=== PATIENT | female | born 1995 | race Caucasian/White ===

== ENCOUNTER 2016-06-02 12:32 | Emergency (ER) | payer MEDICAID ==
[~2016-06-02] VITALS: Ht 165.1 cm; Wt 104.0 kg
[~2016-06-02 12:32] MED LIST: METR-1 PO
[2016-06-02 12:48] VITALS: BP 146/103; PULSE 126; RESP 16; TEMP 99.4; O2SAT 99
--- NOTE | 2016-06-02 13:35 | PD ---
HPI Chief Complaint: Cold / Flu Symptoms Time Seen by Provider: 12:56 Travel History International Travel<30 days: No Contact w/Intl Traveler<30days: No Traveled to known affect area: No History of Present Illness HPI History and examined on the presence of the patient's father. She is 11 weeks . She complains of some runny nose and congestion and headache and diffuse achiness. She has some nausea as well but no vomiting or pelvic pain or bleeding. Symptoms severity is mild. PFSH Past Medical History Hx Anticoagulant Therapy: No Anxiety: Yes Diabetes: No Diminished Hearing: No Immunizations Current: Yes Tetanus Vaccination: < 5 Years Influenza Vaccination: No ?: LMP: 03/19/16 : 1 Para: 0 Past Surgical History Thoracic Surgery: Yes Other Surgery: Yes (REMOVED INFECTION FROM HIP AT 3 YEARS OF AGE) Social History Alcohol Use: No Tobacco Use: No (QUIT 11/2015) Substance Use: No Allergies-Medications (Allergen,Severity, Reaction): Coded Allergies: Zyrtec (Verified Adverse Reaction, Intermediate, VOMITS, 06/02/16) Reported Meds & Prescriptions Reported Meds & Active Scripts Active No Active Prescriptions or Reported Medications Review of Systems General / Constitutional: No: Fever HENT: Positive: Headaches Cardiovascular: No: Chest Pain or Discomfort Respiratory: No: Shortness of Breath Physical Exam Narrative RESPIRATORY: Respiratory effort unlabored, no retractions or use of accessory muscles. Breath sounds are clear and symmetric. CARDIOVASCULAR: Regular rate and rhythm without murmur. Extremities showed no edema or varicosities. GASTROINTESTINAL: Abdomen soft, non-tender, nondistended. Positive bowel sounds. No hepato-splenomegaly, or palpable masses. No guarding. Throat clear Data Data Last Documented VS Vital Signs Date Time Temp Pulse Resp B/P Pulse Ox O2 Delivery O2 Flow Rate FiO2 06/02/16 13:02 16 99 Room Air 06/02/16 12:48 99.4 126 146/103 MDM Medical Decision Making Medical Screen Exam Complete: Yes Emergency Medical Condition: Yes Medical Record Reviewed: Yes Differential Diagnosis Flu syndrome, bronchitis, hyperemesis Narrative Course I have reviewed the patient's electronic medical record. Presentation seems most consistent with an acute viral illness in a young healthy person. No indication for antibiotics Supportive care is discussed Diagnosis Primary Impression: Flu syndrome Additional Impressions: Nausea Qualified Code: Z3A.11 - 11 weeks gestation of Referrals: Primary Care Physician call for appointment Patient Instructions: General Instructions Departure Forms: Work Release, Enter return to work date: Jun 03, 2016 Tests/Procedures Additional Instructions: The patient was advised to follow up with their physician and return if they worsen. Med/Other Pt SpecificInfo: Other Scripts No Active Prescriptions or Reported Meds Disposition: 01 DISCHARGE HOME Condition: Stable Fito Li MD Jun 02, 2016 13:34
== END 2016-06-02 13:53 | disposition home or self-care (01) ==
LOC: PHED 12:32
DX: O26.91 Pregnancy related conditions, unspecified, first trimester (principal); J11.1 Influenza due to unidentified influenza virus with other respiratory manifestations; R11.0 Nausea; R51 Headache; Z3A.11 11 weeks gestation of pregnancy
CPT/HCPCS: 99283

== ENCOUNTER → 2016-09-13 | Outpatient (CLI) | payer MEDICAID | LOC: HPND 07:59 | PROVIDERS: ATTEND Obstetrics & Gynecology | DX: O99.212 Obesity complicating pregnancy, second trimester (principal) | CPT/HCPCS: 76811 ==

== ENCOUNTER → 2016-10-12 | Outpatient (CLI) | payer MEDICAID | LOC: HPND 07:58 | PROVIDERS: ATTEND Obstetrics & Gynecology | DX: O99.213 Obesity complicating pregnancy, third trimester (principal); E66.09 Other obesity due to excess calories; Z68.37 Body mass index [BMI] 37.0-37.9, adult; Z3A.29 29 weeks gestation of pregnancy | CPT/HCPCS: 76816 ==

== ENCOUNTER 2017-06-03 17:25 | Observation (INO) | payer MEDICAID ==
[~2017-06-03] VITALS: Ht 165.1 cm; Wt 110.7 kg
[2017-06-03] VITALS (7 sets, daily range): BP systolic 101–145; BP diastolic 59–78; PULSE 98–144; RESP 16–20; TEMP 96–100; O2SAT 96–98
[2017-06-03] MEDS ORDERED: SODIUM CHLOR 0.9% 1000 ML INJ 800 ML IV ONE (17:46)
[2017-06-03] MEDS ORDERED: SODIUM CHLOR 0.9% 1000 ML INJ 1,000 ML IV ONE ×2 (17:46→18:45)
--- NOTE | 2017-06-03 17:50 | PD ---
HPI Chief Complaint: GI Complaint Time Seen by Provider: 17:43 Travel History International Travel<30 days: No Contact w/Intl Traveler<30days: No Traveled to known affect area: No History of Present Illness HPI 21-year-old female here for evaluation of fever, generalized malaise, dizziness , lightheadedness, nausea, vomiting, diarrhea, and cough. Symptoms have been going on for 3 days. Her 6-month-old son as well as her significant other had similar symptoms last week and her son tested positive for flu. Symptoms progressively worsened today. She did notice a small amount of blood in a couple episodes of emesis. Cough is productive of greenish sputum. No hemoptysis. She denies chest pain or dyspnea. No abdominal pain. She has not taken anything for her symptoms. No history of IVDU. PFSH Past Medical History Hx Anticoagulant Therapy: No Anxiety: Yes Diabetes: No Diminished Hearing: No Immunizations Current: Yes ?: Not LMP: POST : 1 Para: 0 Past Surgical History Thoracic Surgery: Yes Other Surgery: Yes (REMOVED INFECTION FROM HIP AT 3 YEARS OF AGE) Social History Alcohol Use: No Tobacco Use: No (QUIT 11/2015) Substance Use: No Allergies-Medications (Allergen,Severity, Reaction): Coded Allergies: cetirizine (Unverified Adverse Reaction, Intermediate, VOMITS, 06/03/17) Reported Meds & Prescriptions Reported Meds & Active Scripts Active Reported [birthcontrol] Review of Systems Except as stated in HPI: all other systems reviewed are Neg Physical Exam Narrative GENERAL: Well-developed, well-nourished, awake, alert. SKIN: Focused skin assessment warm/diaphoretic. No rashes. HEAD: Atraumatic. Normocephalic. EYES: Pupils equal and round. No scleral icterus. No injection or drainage. ENT: No nasal bleeding or discharge. Mucous membranes pink and moist. Pharynx with mild erythema without exudates. Uvula midline. Normal phonation. NECK: Trachea midline. No JVD. No nuchal rigidity. CARDIOVASCULAR: Tachycardic, rate 136, regular. RESPIRATORY: No accessory muscle use. Clear to auscultation. Breath sounds equal bilaterally. GASTROINTESTINAL: Abdomen soft, non-tender, nondistended. MUSCULOSKELETAL: No obvious deformities. No clubbing. No cyanosis. No edema. NEUROLOGICAL: Awake and alert. No obvious cranial nerve deficits. Motor grossly within normal limits. Normal speech. PSYCHIATRIC: Appropriate mood and affect; insight and judgment normal. Data Data Last Documented VS Vital Signs Date Time Temp Pulse Resp B/P (MAP) Pulse Ox O2 Delivery O2 Flow Rate FiO2 06/03/17 19:05 99.3 129 18 133/78 (96) 97 Room Air Orders Orders Sepsis Workup Initiated (06/03/17 ) Complete Blood Count With Diff (06/03/17 17:46) Comprehensive Metabolic Panel (06/03/17 17:46) Lactic Acid Sepsis Protocol (06/03/17 17:46) Urinalysis - C+S If Indicated (06/03/17 17:46) Influenzae A/B Antigen (06/03/17 17:46) Blood Culture (06/03/17 17:46) Chest, Single Ap (06/03/17 17:46) Blood Glucose (06/03/17 17:46) Ecg Monitoring (06/03/17 17:46) Iv Access Insert/Monitor (06/03/17 17:46) Oximetry (06/03/17 17:46) Oxygen Administration (06/03/17 17:46) Acetaminophen (Tylenol) (06/03/17 18:00) Sodium Chlor 0.9% 1000 Ml Inj (Ns 1000 M (06/03/17 17:46) Sodium Chlor 0.9% 1000 Ml Inj (Ns 1000 M (06/03/17 17:46) Ondansetron Inj (Zofran Inj) (06/03/17 18:00) Ed Urine Pregnancytest Poc (06/03/17 18:14) Oseltamivir (Tamiflu) (06/03/17 18:45) Sodium Chlor 0.9% 1000 Ml Inj (Ns 1000 M (06/03/17 18:45) Ketorolac Inj (Toradol Inj) (06/03/17 18:45) Oseltamivir (Tamiflu) (06/03/17 19:30) Labs Laboratory Tests Test 06/03/17 17:50 06/03/17 19:00 White Blood Count 6.2 TH/MM3 Red Blood Count 4.79 MIL/MM3 Hemoglobin 13.0 GM/DL Hematocrit 40.5 % Mean Corpuscular Volume 84.4 FL Mean Corpuscular Hemoglobin 27.1 PG Mean Corpuscular Hemoglobin Concent 32.1 % Red Cell Distribution Width 12.8 % Platelet Count 225 TH/MM3 Mean Platelet Volume 8.0 FL Neutrophils (%) (Auto) 75.4 % Lymphocytes (%) (Auto) 11.4 % Monocytes (%) (Auto) 12.7 % Eosinophils (%) (Auto) 0.1 % Basophils (%) (Auto) 0.4 % Neutrophils # (Auto) 4.7 TH/MM3 Lymphocytes # (Auto) 0.7 TH/MM3 Monocytes # (Auto) 0.8 TH/MM3 Eosinophils # (Auto) 0.0 TH/MM3 Basophils # (Auto) 0.0 TH/MM3 CBC Comment DIFF FINAL Differential Comment Blood Urea Nitrogen 7 MG/DL Creatinine 0.85 MG/DL Random Glucose 108 MG/DL Total Protein 8.9 GM/DL Albumin 4.2 GM/DL Calcium Level 9.0 MG/DL Alkaline Phosphatase 93 U/L Aspartate Amino Transf (AST/SGOT) 21 U/L Alanine Aminotransferase (ALT/SGPT) 27 U/L Total Bilirubin 0.5 MG/DL Sodium Level 139 MEQ/L Potassium Level 3.5 MEQ/L Chloride Level 104 MEQ/L Carbon Dioxide Level 23.7 MEQ/L Anion Gap 11 MEQ/L Estimat Glomerular Filtration Rate 84 ML/MIN Lactic Acid Level 1.1 mmol/L Urine Color YELLOW Urine Turbidity CLEAR Urine pH 5.5 Urine Specific [place] 1.021 Urine Protein 30 mg/dL Urine Glucose (UA) NEG mg/dL Urine Ketones NEG mg/dL Urine Occult Blood MOD Urine Nitrite NEG Urine Bilirubin NEG Urine Leukocyte Esterase NEG Urine RBC 4-9 /hpf Urine Squamous Epithelial Cells 0-5 /hpf Urine Amorphous Sediment FEW Urine Mucus MANY /lpf Microscopic Urinalysis Comment CULT NOT INDICATED MDM Medical Decision Making Medical Screen Exam Complete: Yes Emergency Medical Condition: Yes Differential Diagnosis Sepsis, Influenza, viral illness, URI, pneumonia, UTI, dehydration, gastroenteritis, metabolic abnormality Narrative Course Initial vital signs show heart rate 144, blood pressure 145/77, pulse ox 96% on room air, oral temp of 100F. CBC: WBC 6.2, hemoglobin 13, hematocrit 40.5, platelets 225, neutrophils 75%, monocytes 12.7%. CMP is essentially unremarkable. Lactic acid is 1.1. UA is not suggestive of UTI. Influenza A is positive. Chest x-ray shows no evidence of acute cardiopulmonary disease. The patient was given 3 L of normal saline, Tylenol, and Toradol. She feels slightly improved, however her heart rate is still 110 beats per minutes. She was given a dose of Tamiflu as she has influenza A. Given persistent tachycardia, the patient will be admitted for overnight observation for further hydration therapy. Case discussed with hospitalist Dr. Nickerson who will admit the patient to the hospitalist service. Diagnosis Primary Impression: Influenza A Additional Impression: Sinus tachycardia Admitting Information Admitting Physician Requests: Observation Fitz Carmona MD Jun 03, 2017 17:50
[2017-06-03] MEDS ORDERED: birthcontrol (17:57)
[2017-06-03] MEDS ORDERED: ACETAMINOPHEN 325 MG TAB PO ONE (18:00)
[2017-06-03] MEDS ORDERED: ONDANSETRON HCL 4 MG/2 ML VIAL IV PUSH ONE (18:00)
--- NOTE | 2017-06-03 18:09 | RADRPT ---
EXAM DATE/TIME: 06/03/2017 17:57 [facility] COMPARISON: CHEST SINGLE AP, March 04, 2014, 9:58. INDICATIONS : Cough, short of breath, fever, chest pains MEDICAL HISTORY : None. SURGICAL HISTORY : None. ENCOUNTER: Initial ACUITY: 3 days PAIN SCORE: 9/10 LOCATION: Bilateral chest FINDINGS: A single view of the chest demonstrates the lungs to be symmetrically aerated without evidence of mas s, infiltrate or effusion. The cardiomediastinal contours are unremarkable. Osseous structures are intact. CONCLUSION: No evidence of acute cardiopulmonary disease. Ricco Farmer MD on June 03, 2017 at 18:06 Board Certified Radiologist. This report was verified electronically.
[2017-06-03 18:13] LABS: AUTOMATED NEUTROPHIL # 4.7 TH/MM3 (1.8-7.7); BASOPHIL % 0.4 % (0.0-2.0); EOSINOPHIL % 0.1 % (0.0-4.0); HEMATOCRIT 40.5 % (35.0-46.0); LYMPH % 11.4 % (9.0-44.0); LYMPHOCYTE # 0.7 TH/MM3 (1.0-4.8); MEAN CELL VOLUME 84.4 FL (80.0-100.0); MEAN CORPUSCULAR HEMOGLOBIN 27.1 PG (27.0-34.0); MEAN CORPUSCULAR HGB CONC 32.1 % (32.0-36.0); MONO % 12.7 % (0.0-8.0); MONOCYTE # 0.8 TH/MM3 (0-0.9); NEUT % 75.4 % (16.0-70.0); PLATELET COUNT 225 TH/MM3 (150-450); RED BLOOD COUNT 4.79 MIL/MM3 (4.00-5.30); RED CELL DISTRIBUTION WIDTH 12.8 % (11.6-17.2); WHITE BLOOD COUNT 6.2 TH/MM3 (4.0-11.0)
[2017-06-03 18:24] LABS: ALBUMIN 4.2 GM/DL (3.4-5.0); BICARBONATE 23.7 MEQ/L (21.0-32.0); BLOOD UREA NITROGEN 7 MG/DL (7-18); GLUCOSE,RANDOM 108 MG/DL (74-106)
[2017-06-03 18:27] LABS: ALT (GPT) 27 U/L (10-53); AST (GOT) 21 U/L (15-37); CREATININE 0.85 MG/DL (0.50-1.00); GLOMERULAR FILTRATION RATE 84 ML/MIN (>89)
[2017-06-03 18:29] LABS: TOTAL BILIRUBIN ADULT 0.5 MG/DL (0.2-1.0); TOTAL PROTEIN 8.9 GM/DL (6.4-8.2)
[2017-06-03 18:30] LABS: ALKALINE PHOSPHATASE 93 U/L (45-117)
[2017-06-03] MEDS ORDERED: KETOROLAC TROMETHAMINE 30 MG/ML (IVP) VIAL IV PUSH ONE (18:45)
[2017-06-03] MEDS ORDERED: OSELTAMIVIR PHOSPHATE 75 MG CAP PO ONE ×2 (18:45→19:30)
[2017-06-03 19:16] LABS: BILIRUBIN, URINE NEG (NEG); BLOOD, URINE MOD (NEG); GLUCOSE,URINE NEG (NEG); KETONE, URINE NEG (NEG); NITRITE,URINE NEG (NEG); PH, URINE 5.5 (5.0-8.5); URINE LEUKOCYTE ESTERASE NEG (NEG)
[2017-06-03 19:33] LABS: CHLORIDE 104 MEQ/L (98-107); SODIUM (NA) 139 MEQ/L (136-145)
[2017-06-03 19:33] LABS: URINE COLOR YELLOW (YELLW/STRAW)
[2017-06-03 19:34] LABS: MUCUS URINE MANY /lpf (OCC); SQUAMOUS EPITHELIAL CELL URINE 0-5 /hpf (0-5)
[2017-06-03 19:38] LABS: AMORPHOUS SEDIMENT, URINE FEW
[2017-06-03] MEDS ORDERED: LACTULOSE SYRUP 20 GM/30 ML CUP PO PRN (20:30)
[2017-06-03] MEDS ORDERED: ONDANSETRON HCL 4 MG/2 ML VIAL IVP PRN (20:30)
[2017-06-03] MEDS ORDERED: MAGNESIUM HYDROXIDE SUSP 30 ML CUP PO PRN (20:30)
[2017-06-03] MEDS ORDERED: ACETAMINOPHEN/HYDROcodone 325 MG/5 MG TAB PO PRN (20:30)
[2017-06-03] MEDS ORDERED: ACETAMINOPHEN/HYDROcodone 325 MG/10 MG TAB PO PRN (20:30)
[2017-06-03] MEDS ORDERED: SENNOSIDES 8.6 MG TAB PO PRN (20:30)
[2017-06-03] MEDS ORDERED: SODIUM CHLORIDE 0.9% FLUSH 10 ML FLUSH IV FLUSH PRN (20:30)
[2017-06-03] MEDS ORDERED: BISACODYL 10 MG SUPP RECTAL PRN (20:30)
[2017-06-03] MEDS: DOCUSATE SODIUM 50 MG/SENNA 8.6 MG TAB PO SCH (20:41)
[2017-06-03] MEDS: SODIUM CHLOR 0.9% 1000 ML INJ 1,000 ML IV SCH (20:41)
[2017-06-03] MEDS: SODIUM CHLORIDE 0.9% FLUSH 10 ML FLUSH IV FLUSH SCH (20:44)
[2017-06-04] VITALS (7 sets, daily range): BP systolic 117–142; BP diastolic 66–79; PULSE 90–124; RESP 20; TEMP 97.6–100.7; O2SAT 97–100
[2017-06-04] MEDS: ACETAMINOPHEN 325 MG TAB PO PRN ×2 (04:41→16:04)
[2017-06-04] MEDS: SODIUM CHLOR 0.9% 1000 ML INJ 1,000 ML IV SCH ×2 (05:37→14:51)
[2017-06-04 06:22] LABS: AUTOMATED NEUTROPHIL # 2.2 TH/MM3 (1.8-7.7); BASOPHIL % 0.5 % (0.0-2.0); EOSINOPHIL % 0.6 % (0.0-4.0); HEMATOCRIT 33.2 % (35.0-46.0); HEMOGLOBIN 10.9 GM/DL (11.6-15.3); LYMPH % 23.1 % (9.0-44.0); LYMPHOCYTE # 0.8 TH/MM3 (1.0-4.8); MEAN CELL VOLUME 85.2 FL (80.0-100.0); MEAN CORPUSCULAR HEMOGLOBIN 27.9 PG (27.0-34.0); MEAN CORPUSCULAR HGB CONC 32.7 % (32.0-36.0); MONO % 16.5 % (0.0-8.0); MONOCYTE # 0.6 TH/MM3 (0-0.9); NEUT % 59.3 % (16.0-70.0); PLATELET COUNT 165 TH/MM3 (150-450); RED BLOOD COUNT 3.89 MIL/MM3 (4.00-5.30); RED CELL DISTRIBUTION WIDTH 12.8 % (11.6-17.2); WHITE BLOOD COUNT 3.7 TH/MM3 (4.0-11.0)
[2017-06-04 06:32] LABS: CHLORIDE 110 MEQ/L (98-107); SODIUM (NA) 142 MEQ/L (136-145)
[2017-06-04 06:46] LABS: ALBUMIN 3.2 GM/DL (3.4-5.0); ALKALINE PHOSPHATASE 64 U/L (45-117); ALT (GPT) 27 U/L (10-53); AST (GOT) 22 U/L (15-37); BICARBONATE 23.7 MEQ/L (21.0-32.0); BLOOD UREA NITROGEN 7 MG/DL (7-18); CALCIUM 8.1 MG/DL (8.5-10.1); CREATININE 0.67 MG/DL (0.50-1.00); GLOMERULAR FILTRATION RATE 111 ML/MIN (>89); GLUCOSE,RANDOM 101 MG/DL (74-106); TOTAL BILIRUBIN ADULT 0.4 MG/DL (0.2-1.0); TOTAL PROTEIN 7.1 GM/DL (6.4-8.2)
[2017-06-04] MEDS: SODIUM CHLORIDE 0.9% FLUSH 10 ML FLUSH IV FLUSH SCH ×2 (09:00→21:00)
[2017-06-04] MEDS: DOCUSATE SODIUM 50 MG/SENNA 8.6 MG TAB PO SCH ×2 (09:00→21:02)
[2017-06-04] MEDS: OSELTAMIVIR PHOSPHATE 75 MG CAP PO SCH ×2 (09:13→21:02)
--- NOTE | 2017-06-04 13:03 | HHI.HP ---
[facility] Hola Rodriguez D.O. Admission Diagnosis influenza A, sinus tachycardia Diagnoses: Chief Complaint: flu Travel History International Travel<30 Days: No Contact w/Intl Traveler <30 Da: No Traveled to Known Affected Are: No History of Present Illness 21-year-old female with no past medical history who presented with flulike symptoms. Patient stated that since Sunday she developed emesis, severe muscle ache, and severe fatigue. She stated that she has the flu. Patient stated that her and 6 month old son had the flu last week and she has similar symptoms. She is also complaining about chest pain with deep inspiration. Deny any diarrhea. Patient stated that today she is able tolerate the diet but she is not eating much. She stated she mainly came here secondary to dehydration. Patient last fever was 100.6 at 4:00 AM. All other review system reviewed and negative. Past Family Social History Past Medical History Denies any past medical history. One vaginal delivery. Past Surgical History Deny any past surgical history. Reported Medications [birthcontrol] Allergies: Coded Allergies: cetirizine (Unverified Adverse Reaction, Intermediate, VOMITS, 06/03/17) Active Ordered Medications Current Medications Acetaminophen (Tylenol) 650 mg ONCE ONCE PO Last administered on 06/03/17at 18: 00; Start 06/03/17 at 18:00; Stop 06/03/17 at 18:01; Status DC Sodium Chloride 1,000 ml @ 1,000 mls/hr Q1H ONCE IV Last administered on at 18:00; Start 06/03/17 at 17:46; Stop 06/03/17 at 18:45; Status DC Sodium Chloride 800 ml @ 1,000 mls/hr Q48M ONCE IV Last administered on at 18:34; Start 06/03/17 at 17:46; Stop 06/03/17 at 18:33; Status DC Ondansetron HCl (Zofran Inj) 4 mg ONCE ONCE IV PUSH Last administered on at 18:00; Start 06/03/17 at 18:00; Stop 06/03/17 at 18:01; Status DC Oseltamivir Phosphate (Tamiflu) 75 mg ONCE ONCE PO ; Start 06/03/17 at 18:45; Stop 06/03/17 at 18:46; Status DC Sodium Chloride 1,000 ml @ 999 mls/hr BOLUS ONCE IV Last administered on 06/03at 19:07; Start 06/03/17 at 18:45; Stop 06/03/17 at 19:45; Status DC Ketorolac Tromethamine (Toradol Inj) 30 mg ONCE ONCE IV PUSH Last administered on 06/03/17at 19:08; Start 06/03/17 at 18:45; Stop 06/03/17 at 18:46 ; Status DC Oseltamivir Phosphate (Tamiflu) 75 mg ONCE ONCE PO Last administered on at 19:40; Start 06/03/17 at 19:30; Stop 06/03/17 at 19:31; Status DC Oseltamivir Phosphate (Tamiflu) 75 mg BID PO Last administered on 06/04/17at 09: 13; Start 06/04/17 at 09:00 Sodium Chloride 1,000 ml @ 100 mls/hr Q10H IV Last administered on 06/04/17at 05:37; Start 06/03/17 at 20:19 Sodium Chloride (NS Flush) 2 ml UNSCH PRN IV FLUSH FLUSH AFTER USING IV ACCESS ; Start 06/03/17 at 20:30 Sodium Chloride (NS Flush) 2 ml BID IV FLUSH ; Start 06/03/17 at 21:00 Ondansetron HCl (Zofran Inj) 4 mg Q6H PRN IVP NAUSEA OR VOMITING; Start at 20:30 Acetaminophen (Tylenol) 650 mg Q6H PRN PO FEVER/PAIN SCALE 1 TO 2 Last administered on 06/04/17at 04:41; Start 06/03/17 at 20:30 Acetaminophen/ Hydrocodone Bitart (Cucumber 5-325 Mg) 1 tab Q4H PRN PO PAIN SCALE 3 TO 5; Start 06/03/17 at 20:30 Acetaminophen/ Hydrocodone Bitart (Cucumber 10-325 Mg) 1 tab Q4H PRN PO PAIN SCALE 6 TO 10; Start 06/03/17 at 20:30 Senna/Docusate Sodium (Jen-Colace) 1 tab BID PO Last administered on at 20:41; Start 06/03/17 at 21:00 Magnesium Hydroxide (Milk Of Magnesia Liq) 30 ml Q12H PRN PO Mild constipation ; Start 06/03/17 at 20:30 Sennosides (Senokot) 17.2 mg Q12H PRN PO Moderate constipation; Start 06/03/17 at 20:30 Bisacodyl (Dulcolax Supp) 10 mg DAILY PRN RECTAL SEVERE CONSITIPATION; Start at 20:30 Lactulose (Lactulose Liq) 30 ml DAILY PRN PO SEVERE CONSITIPATION; Start at 20:30 Family History Review past family history noncontributory. Social History Denies any alcohol, tobacco or illicit drug use. Physical Exam Vital Signs Vital Signs Date Time Temp Pulse Resp B/P (MAP) Pulse Ox O2 Delivery O2 Flow Rate FiO2 06/04/17 07:50 99.5 109 20 119/68 (85) 97 06/04/17 05:39 99.1 06/04/17 04:00 100.6 120 20 142/79 (100) 99 06/04/17 00:00 97.6 124 20 117/72 (87) 100 06/03/17 21:45 96.0 98 20 101/59 (73) 98 06/03/17 21:38 98 06/03/17 21:25 06/03/17 21:15 106 18 06/03/17 19:05 99.3 129 18 133/78 (96) 97 Room Air 06/03/17 18:15 123 18 98 Room Air 06/03/17 17:49 97 Room Air 06/03/17 17:49 97 Room Air 06/03/17 17:30 100.0 144 16 145/77 (99) 96 Physical Exam GENERAL: This is a well-nourished, well-developed patient, in no apparent distress. SKIN: No rashes, ecchymoses or lesions. Cool and dry. HEAD: Atraumatic. Normocephalic. No temporal or scalp tenderness. EYES: Pupils equal round and reactive. Extraocular motions intact. No scleral icterus. No injection or drainage. ENT: Nose without bleeding, purulent drainage or septal hematoma. Throat without erythema, tonsillar hypertrophy or exudate. Uvula midline. Airway patent. NECK: Trachea midline. No JVD or lymphadenopathy. Supple, nontender, no meningeal signs. CARDIOVASCULAR: Regular rate and rhythm without murmurs, gallops, or rubs. reproducible chest pain with palpation of the chest wall. RESPIRATORY: Clear to auscultation. Breath sounds equal bilaterally. No wheezes , rales, or rhonchi. GASTROINTESTINAL: Abdomen soft, non-tender, nondistended. No hepato-splenomegaly , or palpable masses. No guarding. MUSCULOSKELETAL: Extremities without clubbing, cyanosis, or edema. No joint tenderness, effusion, or edema noted. No calf tenderness. Negative Homans sign bilaterally. NEUROLOGICAL: Awake and alert. Cranial nerves II through XII intact. Motor and sensory grossly within normal limits. Five out of 5 muscle strength in all muscle groups. Normal speech. Laboratory Laboratory Tests Test 06/03/17 17:50 06/03/17 19:00 06/04/17 05:47 White Blood Count 6.2 3.7 Red Blood Count 4.79 3.89 Hemoglobin 13.0 10.9 Hematocrit 40.5 33.2 Mean Corpuscular Volume 84.4 85.2 Mean Corpuscular Hemoglobin 27.1 27.9 Mean Corpuscular Hemoglobin Concent 32.1 32.7 Red Cell Distribution Width 12.8 12.8 Platelet Count 225 165 Mean Platelet Volume 8.0 8.0 Neutrophils (%) (Auto) 75.4 59.3 Lymphocytes (%) (Auto) 11.4 23.1 Monocytes (%) (Auto) 12.7 16.5 Eosinophils (%) (Auto) 0.1 0.6 Basophils (%) (Auto) 0.4 0.5 Neutrophils # (Auto) 4.7 2.2 Lymphocytes # (Auto) 0.7 0.8 Monocytes # (Auto) 0.8 0.6 Eosinophils # (Auto) 0.0 0.0 Basophils # (Auto) 0.0 0.0 CBC Comment DIFF FINAL DIFF FINAL Differential Comment Blood Urea Nitrogen 7 7 Creatinine 0.85 0.67 Random Glucose 108 101 Total Protein 8.9 7.1 Albumin 4.2 3.2 Calcium Level 9.0 8.1 Alkaline Phosphatase 93 64 Aspartate Amino Transf (AST/SGOT) 21 22 Alanine Aminotransferase (ALT/SGPT) 27 27 Total Bilirubin 0.5 0.4 Sodium Level 139 142 Potassium Level 3.5 3.3 Chloride Level 104 110 Carbon Dioxide Level 23.7 23.7 Anion Gap 11 8 Estimat Glomerular Filtration Rate 84 111 Lactic Acid Level 1.1 Urine Color YELLOW Urine Turbidity CLEAR Urine pH 5.5 Urine Specific [place] 1.021 Urine Protein 30 Urine Glucose (UA) NEG Urine Ketones NEG Urine Occult Blood MOD Urine Nitrite NEG Urine Bilirubin NEG Urine Leukocyte Esterase NEG Urine RBC 4-9 Urine Squamous Epithelial Cells 0-5 Urine Amorphous Sediment FEW Urine Mucus MANY Microscopic Urinalysis Comment CULT NOT INDICATED Date/Time Source Procedure Growth Status 06/03/17 17:50 Blood Peripheral Aerobic Blood Culture - Preliminary NO GROWTH IN 1 DAY Resulted 06/03/17 17:50 Blood Peripheral Anaerobic Blood Culture - Preliminary NO GROWTH IN 1 DAY Resulted 06/03/17 17:50 Nasal Washing Influenza Types A,B Antigen (RY) - Final Positive For Flu A Antigen Complete Result Diagram: 06/04/17 0547 06/04/17 0547 Imaging Last Impressions Chest X-Ray 06/03/17 1746 Signed Impressions: Service Date/Time: Saturday, June 03, 2017 17:57 - CONCLUSION: No evidence of acute cardiopulmonary disease. Ricco Farmer MD Caprini VTE Risk Assessment Caprini VTE Risk Assessment: No/Low Risk (score <= 1) Caprini Risk Assessment Model Point Value = 1 Point Value = 2 Point Value = 3 Point Value = 5 Age 41-60 Minor surgery BMI > 25 kg/m2 Swollen legs Varicose veins or History of unexplained or recurrent spontaneous Oral contraceptives or hormone replacement Sepsis (< 1 month) Serious lung disease, including pneumonia (< 1 month) Abnormal pulmonary function Acute myocardial infarction Congestive heart failure (< 1 month) History of inflammatory bowel disease Medical patient at bed rest Age 61-74 Arthroscopic surgery Major open surgery (> 45 min) Laparoscopic surgery (> 45 min) Malignancy Confined to bed (> 72 hours) Immobilizing plaster cast Central venous access Age >= 75 History of VTE Family history of VTE Factor V Leiden Prothrombin [id number] Lupus anticoagulant Anticardiolipin antibodies Elevated serum homocysteine Heparin-induced thrombocytopenia Other congenital or acquired thrombophilia Stroke (< 1 month) Elective arthroplasty Hip, pelvis, or leg fracture Acute spinal cord injury (< 1 month) Prophylaxis Regimen Total Risk Factor Score Risk Level Prophylaxis Regimen 0-1 Low Early ambulation 2 Moderate Order ONE of the following: *Sequential Compression Device (SCD) *Heparin 5000 units SQ BID 3-4 Higher Order ONE of the following medications: *Heparin 5000 units SQ TID *Enoxaparin/Lovenox 40 mg SQ daily (WT < 150 kg, CrCl > 30 mL/min) *Enoxaparin/Lovenox 30 mg SQ daily (WT < 150 kg, CrCl > 10-29 mL/min) *Enoxaparin/Lovenox 30 mg SQ BID (WT < 150 kg, CrCl > 30 mL/min) AND/OR *Sequential Compression Device (SCD) 5 or more Highest Order ONE of the following medications: *Heparin 5000 units SQ TID (Preferred with Epidurals) *Enoxaparin/Lovenox 40 mg SQ daily (WT < 150 kg, CrCl > 30 mL/min) *Enoxaparin/Lovenox 30 mg SQ daily (WT < 150 kg, CrCl > 10-29 mL/min) *Enoxaparin/Lovenox 30 mg SQ BID (WT < 150 kg, CrCl > 30 mL/min) AND *Sequential Compression Device (SCD) Assessment and Plan Assessment and Plan 21-year-old female presented with flulike symptoms Influenza A with decreased oral intake - positive for flu A and negative chest x-ray. Labs reviewed and today mild leukopenia which is most likely secondary to viral illness. -Continue with supportive care with IV fluids and anti-emetics until patient is able to tolerate oral intake. Mild leukopenia -Secondary to viral illness. -Continue to monitor. DVT prophylaxis -Low risk. Encourage ambulation. Code Status full Discussed Condition With Patient. Most likely patient should be able to be discharged tomorrow if she continues to improve. Aida Lopez MD Jun 04, 2017 13:03
[2017-06-04] MEDS ORDERED: POTASSIUM CHLORIDE 25 MEQ EFFERVESCENT TAB PO ONE (14:00)
[2017-06-05] VITALS: BP_SYST 110; BP_SYST 118; BP_DIAS 69; BP_DIAS 72; PULSE 113; PULSE 88; RESP 20; TEMP 98.3; TEMP 98.4; O2SAT 96; O2SAT 98
[2017-06-05] MEDS: SODIUM CHLOR 0.9% 1000 ML INJ 1,000 ML IV SCH (01:01)
[2017-06-05 04:00] VITALS: BP 110/69; PULSE 88; RESP 20; TEMP 98.3; O2SAT 96
[2017-06-05 06:26] LABS: HEMATOCRIT 34.3 % (35.0-46.0); HEMOGLOBIN 11.2 GM/DL (11.6-15.3); MEAN CELL VOLUME 84.2 FL (80.0-100.0); MEAN CORPUSCULAR HEMOGLOBIN 27.4 PG (27.0-34.0); MEAN CORPUSCULAR HGB CONC 32.6 % (32.0-36.0); MEAN PLATELET VOLUME 7.8 FL (7.0-11.0); PLATELET COUNT 183 TH/MM3 (150-450); RED BLOOD COUNT 4.08 MIL/MM3 (4.00-5.30); RED CELL DISTRIBUTION WIDTH 12.1 % (11.6-17.2); WHITE BLOOD COUNT 3.2 TH/MM3 (4.0-11.0)
[2017-06-05 06:40] LABS: CALCIUM 8.2 MG/DL (8.5-10.1)
[2017-06-05 06:41] LABS: BICARBONATE 27.4 MEQ/L (21.0-32.0)
[2017-06-05 06:44] LABS: CREATININE 0.7 MG/DL (0.50-1.00)
[2017-06-05 08:00] VITALS: BP 116/75; PULSE 77; RESP 18; TEMP 98.8; O2SAT 98
[2017-06-05] MEDS: SODIUM CHLORIDE 0.9% FLUSH 10 ML FLUSH IV FLUSH SCH (08:20)
[2017-06-05] MEDS: DOCUSATE SODIUM 50 MG/SENNA 8.6 MG TAB PO SCH (09:00)
[2017-06-05] MEDS: OSELTAMIVIR PHOSPHATE 75 MG CAP PO SCH (09:28)
[2017-06-05] MEDS ORDERED: OSEL75 PO ×2 (10:34→13:36)
--- NOTE | 2017-06-05 10:34 | HHI.DCPOC ---
Discharge Care Plan Diagnosis: (1) Influenza A (2) Sinus tachycardia Goals to Promote Your Health * To prevent worsening of your condition and complications * To maintain your health at the optimal level Directions to Meet Your Goals Take your medications as prescribed Follow your dietary instruction Follow activity as directed Keep your appointments as scheduled Take your immunizations and boosters as scheduled If your symptoms worsen call your PCP, if no PCP go to Urgent Care Center or Emergency Room Smoking is Dangerous to Your Health. Avoid second hand smoke Call the 24-hour hour crisis hotline for domestic abuse at Fito Almeida MD Jun 05, 2017 10:34
--- NOTE | 2017-06-05 10:37 | HHI.PR ---
Subjective Remarks Follow up influenza. Patient states that she feels much better today. Still with cough, but less today. Chest pain with coughing. No dyspnea this morning. Feels ready to go home. Objective Vitals Vital Signs Date Time Temp Pulse Resp B/P (MAP) Pulse Ox O2 Delivery O2 Flow Rate FiO2 06/05/17 08:00 98.8 77 18 116/75 (89) 98 06/05/17 04:00 98.3 88 20 110/69 (83) 96 06/05/17 00:00 98.4 113 20 118/72 (87) 98 06/04/17 20:00 98.6 104 20 125/66 (85) 98 06/04/17 20:00 90 06/04/17 15:50 100.7 117 20 119/70 (86) 98 06/04/17 11:50 99.4 105 20 123/79 (94) 100 I/O 06/04/17 06/04/17 06/04/17 06/05/17 06/05/17 06/05/17 06:59 14:59 22:59 06:59 14:59 22:59 Intake Total 1480 ml 1510 ml 2123 ml Balance 1480 ml 1510 ml 2123 ml Intake Oral 480 ml 1040 ml 960 ml IV Total 1000 ml 470 ml 1163 ml # Voids 2 5 6 # Bowel Movements 0 1 0 Result Diagram: 06/05/17 0603 06/05/17 0603 Imaging Last Impressions Chest X-Ray 06/03/17 1746 Signed Impressions: Service Date/Time: Saturday, June 03, 2017 17:57 - CONCLUSION: No evidence of acute cardiopulmonary disease. Ricco Farmer MD Objective Remarks General: No acute distress. Heart: Regular rate and rhythm. No murmur. Lungs: Clear to auscultation bilaterally. No wheezes, rales, or rhonchi. Breathing is nonlabored. Abdomen: Soft, nontender, nondistended. Extremities: No lower extremity edema. Psych: Alert and oriented. Procedures None Urinary Catheter: No Vascular Central Line Catheter: No A/P Assessment and Plan 1. Influenza A: Clinically improving. Afebrile since yesterday afternoon. Stable on room air. Continue Tamiflu. 2. Leukopenia: Secondary to viral illness. 3. DVT prophylaxis: Low risk. Encourage ambulation. Discharge Planning Discharge home in stable condition. Follow up with PCP. Regular diet. Activity as tolerated. Fito Almeida MD Jun 05, 2017 10:37
== END 2017-06-05 11:10 | disposition home or self-care (01) ==
LOC: PHED 17:25 → PHEDA 20:22 → PH3A 21:28
PROVIDERS: ADMIT Family Medicine; ATTEND Family Medicine
DX: J10.1 Influenza due to other identified influenza virus with other respiratory manifestations (principal); D72.819 Decreased white blood cell count, unspecified; E86.0 Dehydration; R00.0 Tachycardia, unspecified; F41.9 Anxiety disorder, unspecified
CPT/HCPCS: 71045; 80048; 80053; 81001; 83605; 84703; 85025; 85027; 87040; 87804; 96361; 96374; 96375; 99285; G0378; J1885; J2405; J7030